=== PATIENT | female | born 1990 | race Caucasian/White ===

== ENCOUNTER 2021-12-09 11:45 | Inpatient (IN) | payer OTHER ==
[2021-12-09 12:25] LABS: HEMOGLOBIN 12.6 gm/dl (12.3-15.3); RED BLOOD COUNT 4.34 M/UL (4.00-5.10); WHITE BLOOD COUNT 13.1 K/UL (4.5-11.0)
[2021-12-09] MEDS ORDERED: FERROUS SULFAT325 MG PO (19:26)
[2021-12-09] MEDS ORDERED: IBUPROFEN600 MG PO (19:26)
[2021-12-09] MEDS ORDERED: COLACE100 MG PO (19:26)
[2021-12-10 03:43] LABS: HEMOGLOBIN 11.7 gm/dl (12.3-15.3)
[2021-12-11] MEDS ORDERED: IBUPROFEN600 MG PO (14:02)
[2021-12-11] MEDS ORDERED: COLACE100 MG PO (14:02)
[2021-12-11] MEDS ORDERED: BUPRENORPHINE HC8 MG PO (14:02)
[2021-12-11] MEDS ORDERED: FERROUS SULFAT325 MG PO (14:02)
== END 2021-12-11 14:20 | disposition home or self-care (01) | DRG 806 ==
LOC: GENOP 11:45 → OB 11:55
PROVIDERS: ADMIT Obstetrics & Gynecology
PROC: 10D07Z6 Extraction of Products of Conception, Vacuum, Via Natural or Artificial Opening (ICD-10-PCS; principal; 2021-12-09)
PROC: 0HQ9XZZ Repair Perineum Skin, External Approach (ICD-10-PCS; 2021-12-09)
PROC: 3E033VJ Introduction of Other Hormone into Peripheral Vein, Percutaneous Approach (ICD-10-PCS; 2021-12-09)
DX: O48.0 Post-term pregnancy (principal); F11.20 Opioid dependence, uncomplicated; Z37.0 Single live birth; O99.324 Drug use complicating childbirth; O99.354 Diseases of the nervous system complicating childbirth; O99.344 Other mental disorders complicating childbirth; F41.9 Anxiety disorder, unspecified; Z3A.40 40 weeks gestation of pregnancy; B18.2 Chronic viral hepatitis C; O70.0 First degree perineal laceration during delivery; J45.40 Moderate persistent asthma, uncomplicated; O99.334 Smoking (tobacco) complicating childbirth; F17.210 Nicotine dependence, cigarettes, uncomplicated; O99.52 Diseases of the respiratory system complicating childbirth; Z28.310 Unvaccinated for COVID-19; G40.A09 Absence epileptic syndrome, not intractable, without status epilepticus
CPT/HCPCS: 36415; 80307; 81001; 82800; 85014; 85018; 85025; 94664; 94760; J2590; J3010